=== PATIENT | female | born 1975 | race Native Hawaiian/Other Pacific Islander ===

== ENCOUNTER 2018-10-17 06:40 | Observation (INO) | payer OTHER ==
--- NOTE | 2018-10-16 20:45 | PDGENHP ---
History and Physical - Chief Complaint LEFT HIP PAIN - History of Present Illness 1. LEFT~Femoroacetabular impingement (POP) Cam type, 2. Right~Greater Trochanteric Bursitis 3. Early OA hips HISTORY OF PRESENT ILLNESS: Efrainis a~43 y.o.~~active~female~who I have had the pleasure to consult on today.~I have enjoyed meeting her.~Melissa~lives in [place], [place].~~Efrainworks as a regional office coordinator.~~Melissa~is ;~melissa~has a~13 yo daughter.~~Efrainenjoys competitive bowling. Adeola's~hip pain started several years ago - but has gotten worse since March 2017, with~no~recalled trauma or injury.~Efraindoes not have~a known history of hip dysplasia. Presentation today is of~anterior~Left~hip pain. ~The hip~does~wake her~at night and~does not~click and catch on~her. Sitting~can be uncomfortable~for her. ~Efraindoes~report suffering from lower back pain episodes. Efrainhas~participated in physical therapy and has not~tried other conservative measures including. She~has not~received sufficient symptomatic improvement. Efrainhas~utilized medication for pain management, including OTC acetaminophen. ~Efrainhas used medication for 1~months. Efrainhas occasional~issues with the~left~hip currently~and~has had "slipping" sensations in this hip off and on for years~(in the past - even worse than the right side). Efrainunderstands that~melissa~has a hip and pelvis problem which should be researched and wishes to get a better understanding of~her~hip status, followed by an establishment of a treatment strategy, hoping~robertwould be able to get back to~her~well being active life. History: Past medical history:~~ Patient~~has a past medical history of Abnormal EKG; Arthritis; Calculus of gallbladder without mention of cholecystitis or obstruction; Complication of anesthesia; Dysrhythmia; Endocrine disease; Fibromyalgia; GERD ( gastroesophageal reflux disease); Hyperlipidemia; Hypertension; Morbid obesity ( HC code); Myasthenia gravis (HC code); Nerve pain (2008); Obstructive sleep apnea (adult) (pediatric); Oxygen dependent; Polycystic ovaries; PONV ( postoperative nausea and vomiting); Seizures (HC code); Thyroid disease; and Unspecified asthma(493.90). She also has no past medical history of Asthma; Cancer (HC code); Cerebral artery occlusion with cerebral infarction (HC code); COPD (chronic obstructive pulmonary disease) (HC code); Depression; Diabetes mellitus (HC code); or Myocardial infarction. Relevant familial history:~None which is relevant~ Past surgical history: PastSurgicalHistory Past Surgical History: Procedure Laterality Date BACK SURGERY BARIATRIC SURGERY 06/29/12 CARDIAC CATHERIZATION about 2.5 weeks ago SECTION, CLASSIC 06/2003 CHOLECYSTECTOMY 2000 laparscopic 2000 HAND TENDON SURGERY 10/2009 Right LAP BAND revision 2009, removal 09/2011 lapband 04/2008 NASAL SEPTUM SURGERY 2013 Peroneal nerve surgery 11/2007 SHOULDER SURGERY 12/2012 Right SPINE SURGERY L5/S1 micodiscectomy Adeola~describes problematic issues with general anesthesia which includes heart arrhythmias while under. I have reviewed, verified and agree with the past medical, surgical, family and social history. Current Medications:~has a current medication list which includes the following prescription(s): albuterol hfa, cholecalciferol (vitamin d3), cyanocobalamin, diclofenac sodium 1%, epipen 2-diallo, furosemide, hydrocortisone, isosorbide mononitrate, levocetirizine, levothyroxine, montelukast, nitroglycerin, omeprazole, phenylephrine, prednisone, vit w/[id number]-[id number]-ezuhl, pyridostigmine, ranolazine, syringe with needle (disposable), and triamcinolone. ALLERGIES:~is allergic to amitriptyline; celebrex [celecoxib]; cephalexin; peanut; penicillins; soybean; sulfa (sulfonamide antibiotics); tree nut; jose juan [fexofenadine]; codeine; gatifloxacin; hydrocodone; latex; shellfish derived; and vicodin [hydrocodone-acetaminophen]. Objective: Physical Examination: Efrainis 5~feet~5~inches tall and weighs~208~Lbs. Efrainis AAO x3; she~is well -nourished, in NAD. Skin is warm and dry. ~Breathing is non-labored. ~CV with RRR by pulse. Abdomen is soft, NTND. Currently,~she~walks with a~normal~gait, though valgus bilaterally Trendelenburg sign is~negative~and proprioception~is normal,~both~sides. She~presents~with moderate~signs of joint laxity.~Beightons Score:~2 ~ Lower spine examination is~negative~for sciatic or femoral nerve irritation with negative~SLR &~femoral stretch tests. Range of motion of the spine is normal~for flexion, extension, and rotations,~with no~associated pain. Strength, Sensation and pulses are~normal -~bilaterally Ankles and knees exams are~normal~and~no~mal-alignment is evident.~ She~has~no leg length discrepancy. Thigh circumference is~symmetric~with no evidence for muscle atrophy~on both~ sides. Hip ROM (degrees): FL ER At 90~hip FL IR At 90~hip FL AB AD EX IR Neutral hip ER Neutral hip R 90 50 0 35 5 5 25 45 L 90 45 0 35 5 5 25 45 Specific hip and pelvis tests: Impingement Test LISA Roll Add. Longus R +++ +++ Negative Negative L ++ ++ Negative Negative Glut. Med ITB Posterior Imp R Negative 5/5 strength +++ 5/5 strength Negative L Negative 5/5 strength Negative 5/5 strength Negative Squeeze test measured~normal Bony Symphysis pubis is~pain free~to touch while concentric activity of the rectus abdominis, does not~produce pain at its insertion. Ilio Psos specific tests are~negative for pain during cycling for~both hips~and remarkable for nothing HF has~no pain~both hips. Anterior and lateral~capsule tenderness on the right Greater trochanteric burse is~painful~on the right hip. Piriformis tests: FAIR is~negative,~with no~local signs of neuritis related to sciatic nerve. SIJs examination is~normal~with~normal~LISA in relation and local tenderness. Hamstrings tests are~negative for pathology~both hips. On a daily basis, the following percentages reflect~Adeola's overall total pain: Deep hip:~80% GT:~20% Imaging: Radiology studies which I~have personally reviewed, analyzed and measured are below: XR: AP of the hip and pelvis: Performed in a~good~technique Coccyx to pubic symphysis distance~0~cm. 0~degrees caudal, standing~ [place]~Lines are preserved. Minimal~Pathological signs are seen in the Symphysis Pubis.~ No~Pathological signs are seen at the Ischial~tuberosity. ~ Specific measurements show: NSA~ LCE Sourcil~Angle Sharp's angle Lat. Cam Lat. Pincer C.Over~sign Head~Coverage % ATDmm R 131 38 4 N N N N 91 + L 126 33 8 N N N 8 85 + Signs of possible sub chondral cysts. Pos. wall sign ISS NAD ~~Dysplasia Comments R Negative Negative 18~mm Negative L Negative Negative 16~mm Negative Sclerosis Sup. Lat. OA Cysts Joint Space-WBZ Joint Space-Medial R + ++ + 5.3~mm 5.2~mm L + ++ + 5.1~mm 5.4~mm X Table lateral: Anterior cam lesion is~seen~on both hips. Alpha Angle: ~ Right~70~dergrees Left~73~degrees Impression and plan:~ Adeola~is a~43 y.o.~active female~suffering from symptomatic~bilateral~hip pain due to~bilateral femoroacetabular impingement (POP) cam-type (right > left)~ with some early OA signs,~causing significant disability to~her~and altering~her ~sport and life activities. Physical examination, imaging, and~her~story correspond with the diagnosis mentioned above. I explained that femoroacetabular impingement (POP) arises due to a bony or soft tissue conflict between the femur (ball) and acetabulum (socket) caused by an abnormality in the shape of the hip joint. Over time, repetitive impingement can result in damage to the labrum and adjacent surface cartilage within the socket, ultimately giving rise to progressive osteoarthritis of the hip. I explained that although a labral tear can be a source of pain, it is rarely the root of the problem and typically occurs secondary to an underlying abnormality in the shape and mechanics of the hip joint. ~ I reviewed conservative treatment options for POP including activity modification to avoid positions of impingement, physical therapy, non-steroidal anti-inflammatory medications, and various injections (corticosteroid and PRP) aimed at reducing inflammation in the hip joint or/and preventing dynamic impingement. PRP injections may promote healing and reduce symptoms in certain cases but it will not repair chronically damaged tissue. Although these measures may help to buy time and reduce current level of symptoms, they are not a definitive solution to the problem given the underlying abnormality in the shape of the hip joint. Patients who have failed conservative management and continue to experience symptoms are candidates for hip arthroscopy, a minimally invasive surgery that can definitively address the underlying problem. Hip arthroscopy typically includes treating the labrum with either repair or reconstruction of the torn labrum; as well as addressing the underlying abnormalities by restoring the normal shape to the hip joint. ~If the cartilage is damaged a Microfracture surgical procedure may also be necessary to help stimulate the growth of fibrocartilage. ~If a patient requires a labral reconstruction or a Microfracture, the initial rehabilitation from the surgery may take longer, but the long-term results are typically favorable. With regards to her bone pain after taking Rituxan for her myasthenia gravis - we are not familiar with this medication and cannot state anything about it in relation to her new onset diffuse, symmetric bone pain.~ Adeola~will review the info presented. In order to obtain more detailed information regarding the alignment, orientation, and shape of the bony hip and pelvis I will order a CT scan to be performed. The results of the CT scan, including femoral torsion and acetabular version measured values and 3D images, will aid me in deciding on the best treatment strategy and surgical pre-planning. In order to better evaluate the soft tissues and cartilage of the hip joint, I will order an MRI scan. Once CT/MRI are completed we can decide if she is a good candidate for hip preservation procedure. We will meet again then and discuss this. Efrainis happy with this plan. I have also supplied~her~with handouts, outlining the expected surgical treatment and rehab involved. I wish~Efrainall the best, ~~ Irina Kramer MD History Information - Allergies/Home Medication List Allergies/Adverse Reactions: amitriptyline Allergy (Verified 09/27/18 14:46) Rash celecoxib [From Celebrex] Allergy (Verified 09/27/18 14:46) Rash cephalexin [From Keflex] Allergy (Verified 09/27/18 14:46) Anaphylaxis codeine Allergy (Verified 09/27/18 14:46) Swelling/neck,face,throat fexofenadine Allergy (Verified 09/27/18 14:46) Rash gatifloxacin Allergy (Verified 09/27/18 14:46) Rash haloperidol [From Haldol] Allergy (Verified 10/04/18 11:48) insomnia Penicillins Allergy (Verified 09/27/18 14:46) Anaphylaxis Sulfa (Sulfonamide Antibiotics) Allergy (Verified 09/27/18 14:46) Anaphylaxis tramadol Allergy (Verified 09/27/18 14:46) Swelling/neck,face,throat Home Medications: Acetaminophen [Tylenol 325mg (*)] 325 mg PO Q6 PRN 09/27/18 [Last Taken Unknown] Albuterol [Proventil Inhaler HFA (*)] 1 - 2 puffs IH Q4H PRN 09/27/18 [Last Taken Unknown] Cyanocobalamin [Vitamin B12 1000MCG/ML (*)] 1,000 mcg IM Q30D 09/27/18 [Last Taken Unknown] Furosemide [Lasix 20 MG (*)] 20 mg PO HS 09/27/18 [Last Taken Unknown] Furosemide [Lasix 20 MG (*)] 60 mg PO DAILY 09/27/18 [Last Taken Unknown] Isosorbide Mononitrate [Imdur 30 mg (*)] 30 mg PO BIDNITRATE 09/27/18 [Last Taken Unknown] Levocetirizine Dihydrochloride [Xyzal] 5 mg PO DAILY 09/27/18 [Last Taken Unknown] Norethindrone Acetate 5 mg PO DAILY 09/27/18 [Last Taken Unknown] Omeprazole 40 mg PO DAILY 09/27/18 [Last Taken Unknown] Vit27&Calcium/Iron/FA [ Rx 1 Tablet (RX)] 1 each PO DAILY 09/27 [Last Taken Unknown] Pyridostigmine [place] [Mestinon Timespan 180mg (RX)] 180 mg PO DAILY 09/27/18 [ Last Taken Unknown] Ranolazine [RANEXA 500mg (RX)] 500 mg PO BID 09/27/18 [Last Taken Unknown] predniSONE [Prednisone] 10 mg PO DAILY 09/27/18 [Last Taken Unknown] Levothyroxine [Synthroid 100 mcg (*)] 100 mcg PO DAILY06 10/04/18 [Last Taken Unknown] I have personally reviewed and updated: medical history - Social History Smoking Status: Never smoked Review of Systems Review of Systems: Physical Exam Physical Exam:
[2018-10-17] MEDS ORDERED: ACETAMINOPHEN 500 MG TAB PO ONE (06:44)
[2018-10-17] MEDS ORDERED: CLINDAMYCIN 900 MG/DEXTROSE 50 ML IV ONE (06:44)
[2018-10-17] MEDS ORDERED: PREGABALIN 150 MG CAP PO ONE (06:44)
[2018-10-17] MEDS ORDERED: LR 1,000 ML IV ONE (06:45)
[2018-10-17] MEDS ORDERED: EPINEPHrine 30 MG/30 ML MDV (0.1 MG/0.1 ML) ONE (08:14)
[2018-10-17] MEDS ORDERED: BUPIVACAINE/EPI 0.25% 30 ML SDV ONE (08:14)
[2018-10-17] MEDS ORDERED: SCOPOLAMINE HYDROBROMIDE 1 MG/3 DAYS PATCH TD ONE (08:40)
--- NOTE | 2018-10-17 08:44 | PDANEPAE ---
ANE History of Present Illness labral injury s/f L hip scope ANE Past Medical History - Cardiovascular History Hx Hypertension: No Hx Arrhythmias: No Hx Chest Pain: Yes Hx Coronary Artery / Peripheral Vascular Disease: No Hx CHF / Valvular Disease: No Hx Palpitations: No Cardiovascular History Comment: Has narrowing where they did the back surgery causing fluid build up into legs, had heart cath to diagnose, still needs to have fixed. Was also having chest pain due to micro-clots at that time. No longer has CP with medication. - Pulmonary History Hx COPD: No Hx Asthma/Reactive Airway Disease: Yes Hx Recent Upper Respiratory Infection: No Hx Oxygen in Use at Home: Yes O2 in Use at Home (L/minute): 2L/NC @ night Hx Sleep Apnea: No Sleep Apnea Screening Result - Last Documented: Positive Pulmonary History Comment: exercise induced asthma. uses inhaler if gets bronchitis. JERRELL +, only uses O2, no cpap - Neurologic History Hx Cerebrovascular Accident: No Hx Seizures: Yes Hx Dementia: No Neurologic History Comment: petite mal seizures as an . myasthenia gravis - has generalized weakness, getting IVIg treatments Q3 weeks - Endocrine History Hx Diabetes: No Endocrine History Comment: hypothyroid - Renal History Hx Renal Disorders: No - Liver History Hx Hepatic Disorders: No - Neurological & Psychiatric Hx Hx Neurological and Psychiatric Disorders: No - Cancer History Hx Cancer: No - Congenital Disorder History Hx Congenital Disorders: No - GI History Hx Gastrointestinal Disorders: Yes Gastrointestinal History Comment: GERD. hx of gastric bypass - Other Health History Other Health History: wears glasses. bilateral hearing aids - Chronic Pain History Chronic Pain: Yes (extremity achiness) - Surgical History Prior Surgeries: right rotator cuff repair. lap band insertion, revision, & removal. gastric bypass. cholecystectomy. . septoplasty. tonsillectomy. hand surgery. perineal nerve surgery. L5-S1 microdiscectomy. right hip reconstruction w/labrium repair. heart cath, 2016 ANE Review of Systems Review of Systems: - Exercise capacity METS (RN): 4 METS ANE Patient History - Allergies Allergies/Adverse Reactions: amitriptyline Allergy (Verified 09/27/18 14:46) Rash celecoxib [From Celebrex] Allergy (Verified 09/27/18 14:46) Rash cephalexin [From Keflex] Allergy (Verified 09/27/18 14:46) Anaphylaxis codeine Allergy (Verified 09/27/18 14:46) Swelling/neck,face,throat fexofenadine Allergy (Verified 09/27/18 14:46) Rash gatifloxacin Allergy (Verified 09/27/18 14:46) Rash haloperidol [From Haldol] Allergy (Verified 10/04/18 11:48) insomnia Penicillins Allergy (Verified 09/27/18 14:46) Anaphylaxis Sulfa (Sulfonamide Antibiotics) Allergy (Verified 09/27/18 14:46) Anaphylaxis tramadol Allergy (Verified 09/27/18 14:46) Swelling/neck,face,throat - Home Medications Home medications: home medication list seen and reviewed Home Medications: Acetaminophen [Tylenol 325mg (*)] 325 mg PO Q6 PRN 09/27/18 [Last Taken 1 Week Ago ~10/10/18] Albuterol [Proventil Inhaler HFA (*)] 1 - 2 puffs IH Q4H PRN 09/27/18 [Last Taken 10/15/18] Cyanocobalamin [Vitamin B12 1000MCG/ML (*)] 1,000 mcg IM Q30D 09/27/18 [Last Taken 10/12/18] Furosemide [Lasix 20 MG (*)] 20 mg PO HS 09/27/18 [Last Taken 10/16/18] Furosemide [Lasix 20 MG (*)] 60 mg PO DAILY 09/27/18 [Last Taken 10/16/18] Isosorbide Mononitrate [Imdur 30 mg (*)] 30 mg PO BIDNITRATE 09/27/18 [Last Taken 10/17/18] Levocetirizine Dihydrochloride [Xyzal] 5 mg PO DAILY 09/27/18 [Last Taken ] Norethindrone Acetate 5 mg PO DAILY 09/27/18 [Last Taken 10/17/18] Omeprazole 40 mg PO DAILY 09/27/18 [Last Taken 10/17/18] Vit27&Calcium/Iron/FA [ Rx 1 Tablet (RX)] 1 each PO DAILY 09/27 [Last Taken 10/12/18] Pyridostigmine [place] [Mestinon Timespan 180mg (RX)] 180 mg PO DAILY 09/27/18 [ Last Taken 10/17/18] Ranolazine [RANEXA 500mg (RX)] 500 mg PO BID 09/27/18 [Last Taken 10/17/18] predniSONE [Prednisone] 10 mg PO DAILY 09/27/18 [Last Taken 10/17/18] Levothyroxine [Synthroid 100 mcg (*)] 100 mcg PO DAILY06 10/04/18 [Last Taken ] - NPO status NPO Status: no food or drink >8 hours NPO Since - Liquids (Date): 10/17/18 NPO Since - Liquids (Time): 05:30 (coffee black) NPO Since - Solids (Date): 10/16/18 NPO Since - Solids (Time): 23:30 - Anes Hx Anes Hx: post operative nausea, slow to awaken from anesthesia - Smoking Hx Smoking Status: Never smoked - Alcohol Use Alcohol Use: None - Family Anes Hx Family Hx Anesthesia Complications: father is very slow to wake up ANE Labs/Vital Signs - Vital Signs Blood Pressure: 114/74 Heart Rate: 68 Respiratory Rate: 16 O2 Sat (%): 95 Height: 165.1 cm Weight: 99.337 kg ANE Physical Exam - Airway Neck exam: FROM Mallampati Score: Class 2 Mouth exam: normal dental/mouth exam - Pulmonary Pulmonary: no respiratory distress - Cardiovascular Cardiovascular: regular rate and rhythym - ASA Status ASA Status: III ANE Anesthesia Plan Anesthesia Plan: general endotracheal anesthesia
[2018-10-17] MEDS ORDERED: SCOPOLAMINE HYDROBROMIDE 1 MG/3 DAYS PATCH TD SCH (08:45)
[2018-10-17] MEDS ORDERED: fentaNYL 100 MCG/2 ML INJ ONE ×3 (08:55→16:09)
[2018-10-17] MEDS ORDERED: DEXAMETHASONE 4 MG/ML VIAL ONE ×2 (08:55)
[2018-10-17] MEDS ORDERED: ONDANSETRON 4 MG/2 ML VIAL ONE ×2 (08:55→15:24)
[2018-10-17] MEDS ORDERED: REMIFENTANIL HCL 1 MG VIAL ONE ×3 (08:55→13:28)
[2018-10-17] MEDS ORDERED: PROPOFOL/EMULSION 500 MG/50 ML BOTTLE IV ONE ×3 (08:55→13:28)
[2018-10-17] MEDS ORDERED: LIDOCAINE 2% 100 MG/5 ML SYR ONE (08:56)
[2018-10-17] MEDS ORDERED: LIDOCAINE HCL 160 MG/4 ML LTA KIT TP ONE (09:00)
[2018-10-17] MEDS ORDERED: ePHEDrine SULFATE 25 MG/5 ML SYR ONE (09:31)
[2018-10-17] MEDS ORDERED: LABETALOL HCL 5 MG/ML 20 ML MDV ONE (11:14)
[2018-10-17] MEDS ORDERED: PHENYLEPHRINE HCL 100 MCG/ML SYR IVP PRN (14:47)
[2018-10-17] MEDS ORDERED: oxyCODONE IR 5 MG TAB PO PRN ×2 (14:47→16:03)
[2018-10-17] MEDS ORDERED: HYDROCODONE/APAP 5/325 TAB PO PRN (14:47)
[2018-10-17] MEDS ORDERED: MEPERIDINE 25 MG/0.5 ML AMP IVP PRN (14:47)
[2018-10-17] MEDS ORDERED: NALOXONE HCL 0.4 MG/ML INJ IVP PRN (14:47)
[2018-10-17] MEDS ORDERED: METOCLOPRAMIDE 10 MG/2 ML VIAL IVP PRN (14:47)
[2018-10-17] MEDS ORDERED: ONDANSETRON 4 MG/2 ML VIAL IVP PRN ×2 (14:47→16:03)
[2018-10-17] MEDS ORDERED: LR 500 ML IV PRN (14:47)
[2018-10-17] MEDS ORDERED: PROMETHAZINE HCL 25 MG/ML INJ IVP PRN ×2 (14:47→16:03)
[2018-10-17] MEDS ORDERED: ALBUTEROL 3 ML DEYVIAL IH PRN (14:47)
[2018-10-17] MEDS ORDERED: ACETAMINOPHEN 500 MG TAB PO PRN (14:47)
[2018-10-17] MEDS ORDERED: LABETALOL HCL 5 MG/ML 20 ML MDV IVP PRN (14:47)
[2018-10-17] MEDS ORDERED: HYDROmorphONE/DILAUDID 1 MG/ML INJ ONE ×2 (15:24→16:17)
--- NOTE | 2018-10-17 15:33 | POSTOPPROG ---
Post Op Note Date of Operation: 10/17/18 Surgeon: Loi Choi Perlite Grinder: Dr. Robles Anesthesia: GET(General Endotracheal) Pre-op Diagnosis: LEFT POP Post-op Diagnosis: LEFT POP Procedure: Left hip arthroscopy Inf/Abcess present in the surg proc area at time of surgery?: No
[2018-10-17] MEDS: fentaNYL 100 MCG/2 ML INJ IVP PRN ×3 (15:36→16:22)
[2018-10-17] MEDS: HYDROmorphONE/DILAUDID 1 MG/ML INJ IVP PRN ×6 (15:40→20:20)
[2018-10-17] MEDS ORDERED: ONDANSETRON DISINTEGRATING 4 MG TAB PO PRN (16:03)
[2018-10-17] MEDS ORDERED: oxyCODONE IR 5 MG TAB ONE (16:42)
[2018-10-17] MEDS: NS 1,000 ML IV SCH ×2 (17:31→17:34)
[2018-10-17] MEDS: DIAZEPAM 2 MG TAB PO PRN (20:20)
--- NOTE | 2018-10-17 21:02 | SUROPNOTE ---
DIANNE Operative Report - Surgery OPERATION NOTE~on Adeola Rubio Surgery was performed at:~[facility] Date of Surgery:~10/17/2018 Diagnosis:~ 1. Left~Femoroacetabular impingement (POP) Cam type,~with~resultant labral tear, Cartilage damage 2. Left~Early Osteoarthritis~ 3. Retro torsion of femur~ Operation:~Left~Arthroscopic Labral reconstruction, Debridement of loose cartilage flap + micro fracture of acetabulum, CAM resection, Synovectomy, Capsular repair Indication: Failure to obtain satisfactory results with long standing conservative measures. Surgeon:~~~~~~~~~~~Loi Choi MD ~ Valve Repairer:~~~~~~~~~~~~~Ethan Robles~ Anaesthetic:~~~~~General Findings~ Left~Hip: Labrum:~Torn and Frayed around~9-5~O'clock partially missing (12') Acetabulum:~Cartilage damage grade~4 OI flap~extending around chondrolabral junction, circumferentially, from 10~to 4,~40% rim to acatabular fossa Fovea:~Partial tear of LT Femoral Head:~Normal cartilage Synovium:~severe~synovitis Peripheral Compartment:~Anterolateral CAM between~12~O'clock superiorly and 6~O' clock anteriorly Procedure: Supine on operating table. General anaesthetic. Antibiotics given. Standard traction set up, without perineal post. A spinal needle was guided to the femoral head neck junction and traction gradually applied with the joint vented. Local anesthetic infiltrated into the skin around the portals. Once~15mm of distraction was achieved the hip needle was then passed into the joint staying as close to the femoral head as possible. A Nytenol wire was passed through the hip needle ensuring that it passed all the way to the fovea to confirm central placement of the needle. Skin was incised and then the portals sequentially dilated to 7 mm. Switching stick inserted and 30 scope passed over the top. Under dry scope conditions the anterior portal was created by passing the hip needle into the joint under direct vision. Again this was dilated up to 7 mm and the slotted canule was inserted. The saline was then turned on and the joint irrigated. The joint was carefully inspected and photographed with findings as above. The arthroscope was switched to the 70 scope to complete the inspection. A longitudinal intra portal capsulotomy was then performed using chitina blade and the 50 Arthrocare wand to connect the two portals. Central Compartment Intervention: Synovectomy was performed. With the assistance of the wand the acatabular rim was then exposed between~9~ and 4~Oclock and was slightly refined with a motorized aziza to achieve a bleeding bone for optimal labral healing. The labrum was then~reconstructed with TFL allograft~with 4~peek and 4 all suture anchors~anchors, achieving~sub- optimal~anatomical~seal due to small gap at 11 o'clock posteriorly in the anastomosis area. Anterior to posterior seal and recon was good beside the posterior anastomosis.~ Microfractures were applied to the area where the bone was exposed from missing cartilage. ~ LT was treated with RF wand to shrink and stabilize reactive tissue.~ Peripheral Compartment Intervention:~ A box-shaped capsulotomy was made with the assistance of SpeedStitch traction suture. This allowed traction on the capsule and a good view of the femoral neck with smaller capsulotomy. The articular margin where sphericity was lost was marked with the Arthrocare wand under X-ray control. Bone lateral to this was removed with the the aziza. Portals were switched to deal with the superior headneck junction. Care was taken not to stray posterior and laterally in view of the location of the retinacular vessels. The cam lesion was addressed from~12~to 6~O'clock. A dynamic impingement test was undertaken~under~vision with~90 of flexion and~5 of internal rotation to confirm that there was no bony or soft tissue impingement or deformation of the labrum. ~Good clearance was obtained with good labral seal. The joint was thoroughly irrigated of any loose debris and the anterior capsule was repaired with~2~No.1 vicryl stitches, closing 50% of the capsulotomy. The skin was then closed with Nylon. Padded dressing was applied. After surgery,~Adeola~moved both lower limbs and had no NV compromise. Specimen - none Bleeding -~20ml Complication - none Evaluation under Anesthesia: Pre: IR 90 ER 90 ABD Flexion Right 5-10 50 40 95 Left 0 50 35 95 Post op instructions: 1.~Non~weight bearing crutches for 6~weeks (toe touch) 2. Pain killers as prescribed 3. Follow up visit with me, as scheduled, where a rehab protocol would be discussed 4. Avoid hip external rotation for 4 weeks 5. ~~25 days of NSAIDS need to be taken in order to prevent the possible formation of HO ~ Kind regards, ~~ Dr. Loi Choi
[2018-10-17] MEDS ORDERED: ALBUTEROL 60 PUFFS/8 GM MDI IH PRN (21:30)
[2018-10-17] MEDS ORDERED: FUROSEMIDE 20 MG TAB PO SCH (22:30)
[2018-10-17] MEDS: oxyCODONE IR 5 MG TAB PO PRN (22:51)
[2018-10-17] MEDS: PYRIDOSTIGMINE BROMIDE 180 MG TAB.ER PO SCH (22:51)
[2018-10-17] MEDS: RANOLAZINE 500 MG TAB.ER PO SCH (22:51)
[2018-10-18] MEDS: DIAZEPAM 2 MG TAB PO PRN ×2 (01:57→11:14)
[2018-10-18] MEDS: oxyCODONE IR 5 MG TAB PO PRN ×5 (02:52→16:04)
[2018-10-18] MEDS ORDERED: LEVOTHYROXINE 100 MCG TAB PO SCH (06:00)
--- NOTE | 2018-10-18 07:44 | POSTANESTH ---
Post Anesthetic Evaluation Cardiovascular Status: Normal, Stable, Similar to Pre-Op Cond Respiratory Status: Normal, Stable, Tx Decrease in SpO2 Level of Consciousness/Mental Status: Can Participate in Eval Pain Control: Adequate, Prn Tx Ordered Nausea/Vomiting Control: Adequate, Prn Tx Ordered Complications Possibly Related to Anesthesia: None Noted
[2018-10-18] MEDS: ISOSORBIDE MONONITRATE 30 MG TAB.SR PO SCH ×2 (08:05→15:23)
[2018-10-18] MEDS: ACETAMINOPHEN 325 MG TAB PO PRN ×2 (08:05→16:05)
[2018-10-18] MEDS: RANOLAZINE 500 MG TAB.ER PO SCH (08:06)
[2018-10-18] MEDS ORDERED: PRENATAL VIT 1 EACH TAB PO SCH (09:00)
[2018-10-18] MEDS ORDERED: PANTOPRAZOLE SODIUM 40 MG TAB PO SCH (09:00)
[2018-10-18] MEDS ORDERED: NORETHINDRONE ACET 5 MG TAB PO SCH (09:00)
[2018-10-18] MEDS ORDERED: CETIRIZINE 10 MG TAB PO SCH (09:00)
[2018-10-18] MEDS ORDERED: FUROSEMIDE 40 MG TAB PO SCH (09:00)
[2018-10-18] MEDS: PYRIDOSTIGMINE BROMIDE 180 MG TAB.ER PO SCH ×2 (10:04→15:23)
--- NOTE | 2018-10-18 13:57 | ASMTCMCOM ---
CM Note CM Note Notes: Pt post op hip arthroscopy for POP. Pt sister and boyfriend able to help at home for pt recovery. Pt has DME. PT rec home care vs. outpatient. CM to follow pt progress. D/c plan of care: likely independent Date Signed: 10/18/2018 01:56 PM Electronically Signed By:CHERYLE Sparks
[2018-10-18 14:55] VITALS: BP 118/71
--- NOTE | 2018-10-18 16:04 | ASMTCMCOM ---
CM Note CM Note Notes: Pt medically stable for d/c, no CM d/c needs identified. Date Signed: 10/18/2018 04:02 PM Electronically Signed By:CHERYLE Sparks
--- NOTE | 2018-10-18 16:06 | ASMTLACE ---
LACE Length of stay for Answers: 2 days current admission Acuity / Level of Answers: No Care: Did the patient have an inpatient admission? Comorbidities - select Answers: Opioid dependence all that apply / Chronic pain Other Notes: HTN; HLD # of Emergency department Answers: 0 visits in the last 6 months Score: 7 Date Signed: 10/18/2018 04:03 PM Electronically Signed By:CHERYLE Sparks
--- NOTE | 2018-10-18 21:20 | SOAPPROG ---
SOAP Progress Note Assessment/Plan: Assessment: 43 yo F POD#1 s/p L hip scope, labral reconstruction, microfracture, cam resection, capsular repair. Admitted for post-operative pain control, now stable for discharge. Plan: NWB LLE x 6 wks for microfracture, crutches Pain control -- rx for dilaudid given to pt prior to discharge and strategies for alternating pain medication discussed f/u in clinic 2 wks post-op, instructed pt to call clinic if pain control remains problematic 10/18/18 21:17 Subjective: Pt reports some issues with pain control over the day and discomfort/swelling in L leg. No CP/SOB/N/V. Objective: Vital Signs Temp Pulse Resp BP Pulse Ox 36.6 C 73 16 118/71 93 10/18/18 14:53 10/18/18 14:53 10/18/18 14:53 10/18/18 14:53 10/18/18 14:53 10/17/18 10/18/18 10/19/18 05:59 05:59 05:59 Intake Total 2240 Output Total 2600 3250 Balance -360 -3250 Gen: NAD L hip dressings c/d/i Normal post-op swelling/ecchymosis around L hip Distally NVI ICD10 Worksheet Patient Problems: Problems Problem Status Onset Femoroacetabular impingement of left hip Acute - ICD10 Problem Qualifiers (1) Femoroacetabular impingement of left hip
--- NOTE | 2018-10-24 05:10 | GDS ---
[f rep st] DISCHARGE SUMMARY Adeola underwent a left hip arthroscopy on October 17, 2018. Postoperatively, she was not well pain managed and was kept overnight for pain management. On the floor she was well pain managed and was discharged home by her 1st postoperative day. She will be nonweightbearing on the left lower extremity for 6 weeks due to microfracture. She was given a full set of prescriptions and instructions and she was discharged in good condition. She will follow up with Dr. Choi in 2 weeks' time. /[id number]/MODL MTDD
[2018-11-11] MEDS ORDERED: CYANO/VITAMIN B12 1000 MCG/ML VIAL IM SCH (09:00)
== END 2018-10-18 17:31 | disposition home or self-care (01) ==
LOC: F3N 06:40
PROVIDERS: ADMIT Orthopaedic Surgery Sports Medicine; ATTEND Orthopaedic Surgery Sports Medicine
PROC: 0SBB4ZZ Excision of Left Hip Joint, Percutaneous Endoscopic Approach (ICD-10-PCS; principal; 2018-10-17 08:30)
PROC: 0SU Lower Joints, Supplement (ICD-10-PCS; principal; 2018-10-17 08:30)
PROC: BQ111ZZ Fluoroscopy of Left Hip using Low Osmolar Contrast (ICD-10-PCS; principal; 2018-10-17 08:30)
DX: M25.852 Other specified joint disorders, left hip (principal); M65.88 Other synovitis and tenosynovitis, other site; M16.12 Unilateral primary osteoarthritis, left hip; M70.62 Trochanteric bursitis, left hip; M79.7 Fibromyalgia; K21.9 Gastro-esophageal reflux disease without esophagitis; E78.5 Hyperlipidemia, unspecified; I10 Essential (primary) hypertension; E66.01 Morbid (severe) obesity due to excess calories; G70.00 Myasthenia gravis without (acute) exacerbation; G47.33 Obstructive sleep apnea (adult) (pediatric); E28.2 Polycystic ovarian syndrome; J44.9 Chronic obstructive pulmonary disease, unspecified; Z88.0 Allergy status to penicillin; Z88.2 Allergy status to sulfonamides
CPT/HCPCS: 29914; 29915; 29999; 76000; 97116; 97161; 97530; G0378; C1713; C1762; J0171; J1100; J1170; J2001; J2405; J2704; J3010